=== PATIENT | female | born 1955 | race Caucasian/White ===

== ENCOUNTER 2022-12-15 08:45 | Observation (INO) | payer OTHER ==
--- OUTSIDE RECORDS SUMMARY | 2022-12-15 08:52 | XMS REPORT | Continuity of Care Document ---
:1955 Author Organization [facility] t Address [address] [facility] [address] [place] [id number] Care Team Providers Name Role Phone PCP, PATIENT DOES NOT HAVE A Primary Care Physician Unavaila ble Only, Ang Db Test Attending Clinician Unavailable Mery DAMON, Nenita Duenas Attending Clinician NENITA FELIZ Attending Clinician Unavailable Doctor Unassigned, [place] Attending Clinician Unavailable Shamir DAMON, Roya Hodges Attending Clinician [phone] Payers Payer Name Policy Type Policy Number Effective Date Expiration Date S ource Problems Condition Condition Condition Status Onset Resolution Last Treating Co mments Source Name Details Category Date Date Treatment Clinician Date No known No known Disease Kelse y active active Seybold problems problems Allergies, Adverse Reactions, Alerts Allergy Allergy Status Severity Reaction(s) Onset Inactive Treating Comm ents Source Name Type Date Date Clinician NO KNOWN Drug Active Univers ALLERGIE Class ity of [facility] Social History Social Habit Start Date Stop Date Quantity Comments Source Exposure to Yes [facility] SARS-CoV-2 (event) Medica l Branch Sex Assigned At [birth year] [facility] 00:00:00 00:00:00 [facility] Smoking Status Start Date Stop Date Source Unknown if ever smoked [facility] Never smoked tobacco Luciana Seyb old Medications Ordered Filled Start Stop Current Ordering Indication Dosage Frequency Signature Comments Components Source Medication Medication Date Date Medication? Clinician (SIG) Name Name No known 2020-07 No Univers medications 2-31 ity of 10:06: [address] Branch No known 2020-07 No Univers medications 2-31 ity of 10:06: [address] No known 2020-07 No Univers medications 2-31 ity of 10:06: [address] Levothyroxi 2020-07 Yes [id number] 100ug Take 1 Luciana ne Sodium 1-05 tablet Seybold (Synthroid) 00:00: (100 mcg 100 MCG 00 total) by oral Tablet mouth daily Azithromyci 2020-07- No [id number] Take 2 Luciana n 250 MG 1-11 20- tablets by Seyb old oral Tablet 00:00: 05:59 mouth on 00 :00 day 1 then 1 tablet by mouth daily for 4 days thereafter . Synthroid 2020- No Luciana 100 MCG 4-05-17 Seybold oral Tablet 00:00: 00:00 00 :00 Sodium Yes USE TWICE Luciana Fluoride 3-28 DAILY FOR Seybol d 5000 PPM 00:00: TOOTHPASTE 1.1 % 00 , SPIT OUT dental EXCESS. DO Paste NOT RINSE , EAT OR DRINK FOR 30 MINUTES Lorazepam 1 Yes 1mg Q.5D Take 1 mg K elsey MG oral 3-08 by mouth 2 Seybol d Tablet 00:00: times 00 daily as needed Immunizations Ordered Filled Immunization Date Status Comments [facility] e Immunization Name Name Covid-19 Vaccine 2020-09-09 Completed Luciana antonio (Moderna), 00:00:00 Mrna-lnp, Derian Protein, Pf, 100 Mcg/0.5ml,IM Covid-19 Vaccine 2020-09-05 Completed Luciana antonio (Moderna), 00:00:00 Mrna-lnp, Derian Protein, Pf, 100 Mcg/0.5ml,IM SARS-COV-2 COVID-19 2020-09-05 Completed Unive rsity of MODERNA VACCINE 00:00:00 [facility] SARS-COV-2 COVID-19 2020-09-05 Completed Unive rsity of MODERNA VACCINE 00:00:00 [facility] SARS-COV-2 COVID-19 2020-09-05 Completed Unive rsity of MODERNA VACCINE 00:00:00 [facility] SARS-COV-2 COVID-19 2020-09-05 Completed Unive rsity of MODERNA VACCINE 00:00:00 [facility] Covid-19 Vaccine 2020-08-09 Completed Luciana antonio (Moderna), 00:00:00 Mrna-lnp, Derian Protein, Pf, 100 Mcg/0.5ml,IM Covid-19 Vaccine 2020-08-08 Completed Luciana paniaguabold (Moderna), 00:00:00 Mrna-lnp, Derian Protein, Pf, 100 Mcg/0.5ml,IM SARS-COV-2 COVID-19 2020-08-08 Completed Unive rsity of MODERNA VACCINE 00:00:00 [facility] SARS-COV-2 COVID-19 2020-08-08 Completed Unive rsity of MODERNA VACCINE 00:00:00 [facility] SARS-COV-2 COVID-19 2020-08-08 Completed Unive rsity of MODERNA VACCINE 00:00:00 [facility] SARS-COV-2 COVID-19 2020-08-08 Completed Unive rsity of MODERNA VACCINE 00:00:00 [facility] Vital Signs Vital Name Observation Time Observation Value Comments Source Systolic blood pressure 2021-05-17 18:39:00 118 mm[Hg] Luciana Anold Diastolic blood 2021-05-17 18:39:00 70 mm[Hg] Raciel betts Seybmariana pressure Heart rate 2021-05-17 18:39:00 74 /min Luciaan antonio Body temperature 2021-05-17 18:39:00 36.39 Delmi Zoya Walter Respiratory rate 2021-05-17 18:39:00 12 /min Zoya Walter Body height 2021-05-17 18:39:00 154.9 cm Lucianaosmin antonio Body weight 2021-05-17 18:39:00 63.504 kg Luciana antonio BMI 2021-05-17 18:39:00 26.45 kg/m2 Lucianaosmin paniaguaesteban Procedures Procedure Date / Time Performed Performing Clinician [facility] e ASSIGNMENT OF BENEFITS 2021-07-12 15:52:48 Doctor Unassigned, No [facility] Encounters Start End Encounter Admission Attending Care Care Encounter Source Date/Time Date/Time Type Type Clinicians Facility Department ID 2021-07-12 2021-07-12 Laboratory Only, Ang Db Test [facility] 1.2.8 [id number] Univers 09:45:00 10:05:32 Only Nenita Feliz [facility] [id number] .10 ity of [place] [id number] Yannick as DENZEL?BLEA [id number] [address] MEDICAL OFFICE BUILDING 2021-07-12 2021-07-12 Outpatient R MERY [facility] [id number] Univers 09:45:00 10:05:32 NENITA ity of [facility] 2021-07-12 2021-07-12 Letter Doctor GIOVANA [id number] Univers 00:00:00 00:00:00 (Out) Unassigned, ROD [id number] ity of [place] [facility] [id number] Yannick as [id number] [facility] [address] [place] 2021-07-12 2021-07-12 Letter Doctor GIOVANA [id number] Univers 00:00:00 00:00:00 (Out) Unassigned, ROD [id number] ity of [place] [facility] [id number] Yannick as [phone] [facility] [address] [place] 2021-07-12 2021-07-12 Orders Doctor GIOVANA [id number] Univers 00:00:00 00:00:00 Only Unassigned, ROD [id number] ity of [place] [facility] [id number] Yannick as [id number] [facility] [address] [place] 2021-07-11 2021-07-11 Outpatient R [facility] [id number] Univers 15:45:00 15:45:00 ity of [facility] 2021-05-17 2021-05-17 Office Lawrence [place] [id number] Luciana 13:36:23 14:06:23 Visit Roya Boris [id number] Se joaquin Hodges [id number] [id number] Results This patient has no known results.
--- NOTE | 2022-12-15 09:25 | ER ---
Nurse's Notes [facility] Name: Joanne Leary Age: 67 yrs Sex: Female : 1955 Arrival Date: 12/15/2022 Time: 08:45 Bed 14 Private MD: Todd Murillo T Diagnosis: Chest pain, unspecified;Pain in right arm;Pain in right upper arm;Spondylolysis, cervical tweawa-[id number] STENOSIS;Hypokalemia Presentation: 12/15 08:55 Chief complaint: Patient states: she woke up morning with right am pain. she ap3 visited urgent care who informed her it could be a tendonitis. however this morning she woke up with the pain radiating into the right side of her chest and down into her right hand. Coronavirus screen: At this time, the client does not indicate any symptoms associated with coronavirus-19. Ebola Screen: No symptoms or risks identified at this time. Initial Sepsis Screen: Does the patient meet any 2 criteria? No. Patient's initial sepsis screen is negative. Does the patient have a suspected source of infection? No. Patient's initial sepsis screen is negative. Risk Assessment: Do you want to hurt yourself or someone else? Patient reports no desire to harm self or others. Onset of symptoms was December 11, 2022. 08:55 Method Of Arrival: Ambulatory ap3 08:55 Acuity: OLIMPIA 3 ap3 Triage Assessment: 08:57 General: Appears in no apparent distress. Behavior is calm, cooperative, appropriate ap3 for age. Pain: Complains of pain in right arm Pain radiates to chest and right hand Pain currently is 10 out of 10 on a pain scale. Pain began 2-3 days ago. Neuro: Level of Consciousness is awake, alert, obeys commands, Oriented to person, place, time, situation. Cardiovascular: Patient's skin is warm and dry. Respiratory: Airway is patent Respiratory effort is even, unlabored, Respiratory pattern is regular, symmetrical. Historical: - Allergies: 08:57 No Known Allergies; ap3 - Home Meds: 08:57 Synthroid Oral [Active]; ap3 - PMHx: 08:57 None; ap3 - Immunization history:: Client reports receiving the 2nd dose of the Covid vaccine. - Social history:: Smoking status: Patient denies any tobacco usage or history of. Screenin:58 [facility] ED Fall Risk Assessment (Adult) History of falling in the last 3 months, ap3 including since admission No falls in past 3 months (0 pts). Abuse screen: Denies threats or abuse. Nutritional screening: No deficits noted. Tuberculosis screening: No symptoms or risk factors identified. Assessment: 11:46 Reassessment: attempted report to 4th floor. was informed nurse would return my call. ap3 12:20 Reassessment: nurse attempted to call report again. was informed the nurse would return ap3 my call. 12:49 Reassessment: report called to receiving nurse. ap3 Vital Signs: 08:55 Resp 17; Temp 97.6(TE); Weight 61.23 kg; Height 5 ft. 1 in. ; Pain 10/10; ap3 09:09 BP 141 / 75; Pulse 59; Pulse Ox 99% on R/A; ap3 11:46 BP 134 / 74; Pulse 56; Pulse Ox 99% ; ap3 08:55 Body Mass Index 25.51 (61.23 kg, 154.94 cm) ap3 08:55 Pain Scale: Adult ap3 ED Course: 08:47 Patient arrived in ED. mr 08:47 Todd Murillo MD is Private Physician. mr 08:50 Christiano Kwon MD is Attending Physician. carmelo 08:51 Sonia Andino, RN is Primary Nurse. ap3 08:57 Triage completed. ap3 08:58 Arm band placed on left wrist. ap3 08:58 Patient has correct armband on for positive identification. Bed in low position. Call ap3 light in reach. Side rails up X2. shirt cleaner on. Pulse ox on. NIBP on. Door closed. Noise minimized. 08:58 Patient maintains SpO2 saturation greater than 95% on room air. ap3 09:00 EKG done, by ED staff, reviewed by Christiano Kwon MD. em1 09:23 Gilberto Escalera MD is Hospitalizing Provider. carmelo 09:31 CT C Spine In Process Unspecified. EDMS 09:39 Sánchez Ruiz is Hospitalizing Provider. carmelo 09:40 CT Aorta for Dissection In Process Unspecified. EDMS 09:45 XRAY Chest (1 view) In Process Unspecified. EDMS 09:55 UPPER EXTREMITY VENOUS UNILATE In Process Unspecified. EDMS 12:26 Admitting physician to see patient. ap3 12:50 No provider procedures requiring assistance completed. Patient admitted, IV remains in ap3 place. Administered Medications: 10:53 Drug: Aspirin PO Chewable Tablet 324 mg Route: PO; ap3 12:21 Follow up: Response: No adverse reaction ap3 10:53 Drug: Famotidine IVP 20 mg Route: IVP; Site: right antecubital; ap3 12:21 Follow up: Response: No adverse reaction ap3 10:53 Drug: Potassium PO Effervescent Tablet 25 mEq Route: PO; ap3 12:21 Follow up: Response: No adverse reaction ap3 10:53 Drug: Decadron - Dexamethasone IVP 10 mg Route: IVP; Site: right antecubital; ap3 12:21 Follow up: Response: No adverse reaction ap3 10:53 Drug: Ketorolac IVP 30 mg Route: IVP; Site: right antecubital; ap3 12:21 Follow up: Response: No adverse reaction ap3 Medication: 12:50 VIS not applicable for this client. ap3 Outcome: 09:24 Decision to Hospitalize by Provider. carmelo 12:50 Admitted to Tele ap3 12:50 Condition: good 12:50 Instructed on the need for admit. 12:58 Patient left the ED. mb9 Signatures: Dispatcher [employer] Christiano Priest MD MD cha Rivera, Cristian Mohan1 Sonia Andino RN RN ap3 Franchesca Malhotra RN RN mb9
--- NOTE | 2022-12-15 09:25 | EDPHYS ---
Physician Documentation [facility] Name: Joanne Leary Age: 67 yrs Sex: Female : 1955 Arrival Date: 12/15/2022 Time: 08:45 Bed 14 Private MD: Todd Murillo T ED Physician Christiano Kwon HPI: 12/15 09:18 This 67 yrs old Female presents to ER via Ambulatory with complaints of Chest carmelo Pain. Historical: - Allergies: 08:57 No Known Allergies; ap3 - Home Meds: 08:57 Synthroid Oral [Active]; ap3 - PMHx: 08:57 None; ap3 - Immunization history:: Client reports receiving the 2nd dose of the Covid vaccine. - Social history:: Smoking status: Patient denies any tobacco usage or history of. ROS: 09:19 Constitutional: Negative for fever, chills, and weight loss, Eyes: Negative for injury, carmelo pain, redness, and discharge, ENT: Negative for injury, pain, and discharge, Neck: Negative for injury, pain, and swelling, Respiratory: Negative for shortness of breath, cough, wheezing, and pleuritic chest pain, Abdomen/GI: Negative for abdominal pain, nausea, vomiting, diarrhea, and constipation, Back: Negative for injury and pain, : Negative for injury, bleeding, discharge, and swelling, Skin: Negative for injury, rash, and discoloration, Neuro: Negative for headache, weakness, numbness, tingling, and seizure, Psych: Negative for depression, anxiety, suicide ideation, homicidal ideation, and hallucinations, Allergy/Immunology: Negative for hives, rash, and allergies, Endocrine: Negative for neck swelling, polydipsia, polyuria, polyphagia, and marked weight changes, Hematologic/Lymphatic: Negative for swollen nodes, abnormal bleeding, and unusual bruising. 09:19 Cardiovascular: Positive for chest pain. 09:19 MS/extremity: Positive for pain, of the right arm. Exam: 09:19 Constitutional: This is a well developed, well nourished patient who is awake, alert, carmelo and in no acute distress. Head/Face: Normocephalic, atraumatic. Eyes: Pupils equal round and reactive to light, extra-ocular motions intact. Lids and lashes normal. Conjunctiva and sclera are non-icteric and not injected. Cornea within normal limits. Periorbital areas with no swelling, redness, or edema. ENT: Nares patent. No nasal discharge, no septal abnormalities noted. Tympanic membranes are normal and external auditory canals are clear. Oropharynx with no redness, swelling, or masses, exudates, or evidence of obstruction, uvula midline. Mucous membranes moist. Neck: Trachea midline, no thyromegaly or masses palpated, and no cervical lymphadenopathy. Supple, full range of motion without nuchal rigidity, or vertebral point tenderness. No Meningismus. Chest/axilla: Normal chest wall appearance and motion. Nontender with no deformity. No lesions are appreciated. Cardiovascular: Regular rate and rhythm with a normal S1 and S2. No gallops, murmurs, or rubs. Normal PMI, no JVD. No pulse deficits. Respiratory: Lungs have equal breath sounds bilaterally, clear to auscultation and percussion. No rales, rhonchi or wheezes noted. No increased work of breathing, no retractions or nasal flaring. Abdomen/GI: Soft, non-tender, with normal bowel sounds. No distension or tympany. No guarding or rebound. No evidence of tenderness throughout. Back: No spinal tenderness. No costovertebral tenderness. Full range of motion. Female : Normal external genitalia. Skin: Warm, dry with normal turgor. Normal color with no rashes, no lesions, and no evidence of cellulitis. Neuro: Awake and alert, GCS 15, oriented to person, place, time, and situation. Cranial nerves II-XII grossly intact. Motor strength 5/5 in all extremities. Sensory grossly intact. Cerebellar exam normal. Normal gait. Psych: Awake, alert, with orientation to person, place and time. Behavior, mood, and affect are within normal limits. 09:19 Musculoskeletal/extremity: Extremities: grossly normal except: noted in the right arm: pain, ROM: full active range of motion, full passive range of motion, Circulation is intact in all extremities. Sensation intact. Compartment Syndrome exam of affected extremity: is normal. DVT Exam: no swelling, negative Homans' sign noted on exam, no appreciated bluish discoloration, no erythema, no increased warmth, pain, tenderness. 09:26 ECG was reviewed by the Attending Physician. [facility] Vital Signs: 08:55 Resp 17; Temp 97.6(TE); Weight 61.23 kg; Height 5 ft. 1 in. ; Pain 10/10; ap3 09:09 BP 141 / 75; Pulse 59; Pulse Ox 99% on R/A; ap3 11:46 BP 134 / 74; Pulse 56; Pulse Ox 99% ; ap3 08:55 Body Mass Index 25.51 (61.23 kg, 154.94 cm) ap3 08:55 Pain Scale: Adult ap3 MDM: 08:50 Patient medically screened. carmelo 09:24 HEART Score: History: Slightly Suspicious (0), ECG: Normal (0), Age: > or = 65 years carmelo (2), Risk Factors: 1 or 2 risk factors (1), [Hypertension] [+ Family HX] Troponin: < or = 1 x Normal Limit (0). The patient was given aspirin in the Emergency Department. MAYNOR Risk Score: 1 - patient's age is greater or equal to 65 years, TOTAL SCORE = 1. Data reviewed: vital signs, nurses notes, lab test result(s), EKG, radiologic studies, CT scan, doppler, plain films. Consideration of Admission/Observation Escalation of care including admission/observation considered. I considered the following discharge prescriptions or medication management in the emergency department Medications were administered in the Emergency Department. See MAR. Test considered but Not performed: MRI: no cervical mri. 12/15 08:51 Order name: Basic Metabolic Panel; Complete Time: 10:17 12/15 08:51 Order name: CBC with Diff; Complete Time: 10:17 12/15 08:51 Order name: LFT's; Complete Time: 10:17 12/15 08:51 Order name: Magnesium; Complete Time: 10:17 12/15 08:51 Order name: NT PRO-BNP; Complete Time: 10:17 12/15 08:51 Order name: PT-INR; Complete Time: 10:17 12/15 08:51 Order name: Troponin HS; Complete Time: 10:17 12/15 08:51 Order name: Lipase; Complete Time: 10:17 12/15 10:35 Order name: Magnesium EDMS 12/15 10:35 Order name: Phosphorus EDMS 12/15 10:35 Order name: T4 Free EDMS 12/15 10:35 Order name: Thyroid Stimulating Hormone EDMS 12/15 10:35 Order name: Urinalysis w/ reflexes EDMS 12/15 10:35 Order name: Basic Metabolic Panel EDMS 12/15 10:35 Order name: Basic Metabolic Panel EDMS 12/15 10:35 Order name: CBC with Automated Diff EDMS 12/15 10:35 Order name: CBC with Automated Diff EDMS 12/15 10:35 Order name: Lipid Profile EDMS 12/15 10:35 Order name: Lipid Profile EDMS 12/15 10:39 Order name: CREATININE WHOLE BLOOD; Complete Time: 11:11 EDMS 12/15 08:51 Order name: XRAY Chest (1 view); Complete Time: 10:17 [facility] 12/15 09:19 Order name: CT C Spine; Complete Time: 10:17 [facility] 12/15 09:24 Order name: UPPER EXTREMITY VENOUS UNILATE; Complete Time: 12:20 EDMS 12/15 09:27 Order name: CT Aorta for Dissection; Complete Time: 10:17 [facility] 12/15 10:22 Order name: C Spine Wo Cont; Complete Time: 12:20 [facility] 12/15 10:38 Order name: Echo with Doppler EDMS 12/15 08:51 Order name: EKG; Complete Time: 08:52 [facility] 12/15 10:35 Order name: CONS Physician Consult EDAZ 12/15 10:35 Order name: Heart Healthy EDAZ 12/15 08:51 Order name: Cardiac monitoring; Complete Time: 08:59 [facility] 12/15 08:51 Order name: EKG - Nurse/Tech; Complete Time: 09:00 [facility] 12/15 08:51 Order name: IV Saline Lock; Complete Time: 09:28 [facility] 12/15 08:51 Order name: Labs collected and sent; Complete Time: 09:28 [facility] 12/15 08:51 Order name: O2 Per Protocol; Complete Time: 08:59 [facility] 12/15 08:51 Order name: O2 Sat Monitoring; Complete Time: 08:59 [facility] EC:26 Rate is 61 beats/min. Rhythm is regular. QRS [place] is Normal. [place] interval is normal. QRS carmelo interval is normal. QT interval is normal. No Q waves. T waves are Normal. No ST changes noted. Clinical impression: NSR w/ Non-specific ST/T Changes and No evidence of ischemia. Interpreted by me. Reviewed by me. Administered Medications: 10:53 Drug: Aspirin PO Chewable Tablet 324 mg Route: PO; ap3 12:21 Follow up: Response: No adverse reaction ap3 10:53 Drug: Famotidine IVP 20 mg Route: IVP; Site: right antecubital; ap3 12:21 Follow up: Response: No adverse reaction ap3 10:53 Drug: Potassium PO Effervescent Tablet 25 mEq Route: PO; ap3 12:21 Follow up: Response: No adverse reaction ap3 10:53 Drug: Decadron - Dexamethasone IVP 10 mg Route: IVP; Site: right antecubital; ap3 12:21 Follow up: Response: No adverse reaction ap3 10:53 Drug: Ketorolac IVP 30 mg Route: IVP; Site: right antecubital; ap3 12:21 Follow up: Response: No adverse reaction ap3 Disposition Summary: 12/15/22 09:24 Hospitalization Ordered Hospitalization Status: Observation carmelo Location: Telemetry/MedSurg (observation) carmelo Condition: Fair carmelo Problem: new carmelo Symptoms: have improved carmelo Bed/Room Type: Standard carmelo Provider: Sánchez Ruiz(12/15/22 09:39) carmelo Room Assignment: 409(12/15/22 10:50) dw Diagnosis - Chest pain, unspecified carmelo - Pain in right arm carmelo - Pain in right upper arm carmelo - Spondylolysis, cervical region - C5-C6 STENOSIS carmelo - Hypokalemia carmelo Forms: - Medication Reconciliation Form carmelo - SBAR form carmelo Signatures: Dispatcher [employer] EDMirna Barrera RN RN dw Anderson, Corey, MD MD cha Prokisch, Amanda RN RN ap3 Corrections: (The following items were deleted from the chart) 09:22 09:20 Extremity Venous Uni [id number] ordered. EDMS EDMS 09:39 09:24 Gilberto Escalera cha [facility] 10:50 09:24 carmelo kenyetta
[2022-12-15 09:33] LABS: Absolute Lymphocytes (CBC) 1.7 K/uL (0.7-4.9); Hematocrit 34.4 % (36.0-45.0); Lymphocytes % 20.3 % (15.3-44.8); MCV 91.8 fL (80-100); MPV 8.5 fL (7.6-11.3); RBC Red Blood Cell Count 3.75 M/uL (3.86-4.86)
[2022-12-15] MEDS ORDERED: ASPIRIN 81 MG CHEWABLE TABLET ONE (09:35)
[2022-12-15] MEDS ORDERED: FAMOTIDINE 20 MG/2 ML VIAL IV ONE (09:35)
--- NOTE | 2022-12-15 09:44 | RAD REPORT ---
EXAM DESCRIPTION: CT - C Spine Wo Con - 12/15/2022 9:29 am CLINICAL HISTORY: Right arm numbness COMPARISON: None TECHNIQUE: Computed axial tomography of the cervical spine were obtained with sagittal and coronal r econstruction images generated and reviewed. All CT scans are performed using dose optimization technique as appropriate and may include automated exposure control or mA/KV adjustment according to patient size. FINDINGS: A cervical fracture is not seen. No dislocation. Slight posterior subluxation C4 on C5. C5-6 disc is thinned. Osteophytes are present. Small disc bulge. Mild to moderate narrowing of the ri ght neural foramina. IMPRESSION: A cervical fracture is not seen. Spondylosis C5-6 resulting in mild to moderate right foraminal stenosis. If the patient continues have symptoms to suggest spinal cord/spinal canal pathology then MRI would b e recommended.
[2022-12-15 09:51] LABS: Protime INR 1.14
[2022-12-15 09:53] LABS: Albumin 3.5 g/dL (3.4-5.0); Bilirubin Direct 0.1 mg/dL (0-0.2); Bilirubin Indirect, Calculated 0.3 mg/dL (0.2-0.8); Bilirubin Total 0.4 mg/dL (0.2-1.0); Magnesium 1.9 mg/dL (1.6-2.4); Potassium 3.4 mEq/L (3.5-5.1); Protein, Total 6.7 g/dL (6.4-8.2); Troponin High Sensitivity 5.4 pg/mL (<58.9)
--- NOTE | 2022-12-15 09:57 | RAD REPORT ---
EXAM DESCRIPTION: CT - Angio Aorta For Dissection - 12/15/2022 9:38 am CLINICAL HISTORY: . Chest and abd pain COMPARISON: None TECHNIQUE: Computed tomography angiography of the chest, abdomen pelvis were obtained. 100 cc Isovue 370 was administered intravenously. Coronal and sagittal reconstruction were performed. MIP 3D reconstruction was performed All CT scans are performed using dose optimization technique as appropriate and may include automated exposure control or mA/KV adjustment according to patient size. FINDINGS: An aortic dissection is not seen. An aortic aneurysm is not displayed. The celiac, SMA and KATIE are patent . A lung consolidation is not present. A pericardial effusion is not seen. A pleural effusion is not no arlin. The liver,spleen, pancreas,adrenals and kidneys demonstrate no significant abnormality. There no evidence diverticulitis. Normal appendix. No adnexal mass Marked osteoarthritis left hip IMPRESSION: Negative for an aortic dissection.
--- NOTE | 2022-12-15 10:11 | RAD REPORT ---
EXAM DESCRIPTION: Nita Single View12/15/2022 9:46 am CLINICAL HISTORY: Chest pain COMPARISON: none FINDINGS: The lungs appear clear of acute infiltrate. The heart is normal size IMPRESSION: No acute abnormalities displayed
[2022-12-15] MEDS ORDERED: HYDROCODONE/APAP 5/325 MG TAB PO PRN (10:28)
[2022-12-15] MEDS ORDERED: HYDRALAZINE HCL 20 MG/ML VIAL IV PRN (10:32)
[2022-12-15] MEDS ORDERED: POTASSIUM CL SA 10 MEQ TAB PO ONE (10:33)
--- NOTE | 2022-12-15 10:35 | P.HP ---
Certification for Inpatient Patient admitted to: Observation With expected LOS: <2 Midnights Patient will require the following post-hospital care: None Practitioner: I am a practitioner with admitting privileges, knowledge of patient current condition, hospital course, and medical plan of care. Services: Services provided to patient in accordance with Admission requirements found in Title 42 Section 412.3 of the Code of Federal Regulations Patient History Date of Service: 12/15/22 Reason for admission: Chest pain and RU Arm pain History of Present Illness: Patient is a 67-year-old female with a past medical history significant for hypothyroidism who presents with complaint of chest pain located in the right chest wall onset yesterday. Patient reported that 4 days ago she started having pain in the right upper arm. Patient followed up with an urgent care 2 days ago and was prescribed muscle relaxants and pain medication. Patient also reported that she was medicated with steroid. Patient reported that she continued having pain without any relief with prescribed medications. Patient rated right upper arm pain as 10/10 in severity and described pain as aching quality. Patient also rated chest pain as 5/10 in severity and described pain as pressure in quality. Patient reported associated signs and symptoms of dizziness. Patient denies any other signs and symptoms. Symptoms are aggravated or relieved by nothing. Patient decided to present to the hospital due to worsening symptoms. Allergies No Known Allergies Allergy (Verified 12/15/22 13:06) Home Medications: Levothyroxine Sodium [Synthroid] 0.1 mg PO 12/15/22 - Past Medical/Surgical History -: Hypothyroidism. Past Surgical History: Reviewed- Non-Contributory - Family History Family History: Reviewed- Non-Contributory - Social History Smoking Status: Never smoker Alcohol use: Yes CD- Drugs: No Caffeine use: Yes Place of Residence: Home Review of Systems General: Unremarkable Eyes: Unremarkable ENT: Unremarkable Respiratory: Unremarkable Cardiovascular: Chest Pain Gastrointestinal: Unremarkable Genitourinary: Unremarkable Musculoskeletal: Arm Pain Integumentary: Unremarkable Neurological: Other (Dizziness) Lymphatics: Unremarkable Physical Examination - Physical Exam General: Alert, In no apparent distress, Oriented x3 HEENT: Atraumatic, PERRLA, Mucous membr. moist/pink, EOMI, Sclerae nonicteric Neck: Supple, 2+ carotid pulse no bruit, No LAD, Without JVD or thyroid abnormality Respiratory: Clear to auscultation bilaterally, Normal air movement Cardiovascular: No edema, Regular rate/rhythm, Normal S1 S2 Capillary refill: <2 Seconds Gastrointestinal: Normal bowel sounds, No tenderness Musculoskeletal: No clubbing, No swelling, Tenderness Integumentary: No rashes, No breakdown, No significant lesion Neurological: Normal gait, Normal speech, Normal strength at 5/5 x4 extr, Normal tone, Normal affect Lymphatics: No axilla or inguinal lymphadenopathy - Studies Laboratory Data (last 24 hrs) 12/15/22 09:21: PT 12.5, INR 1.14 12/15/22 09:21: WBC 8.50, Hgb 11.6 L, Hct 34.4 L, Plt Count 260 12/15/22 09:21: Sodium 141, Potassium 3.4 L, BUN 33 H, Creatinine 0.89, Glucose 111 H, Magnesium 1.9, Total Bilirubin 0.4, AST 18, ALT 27, Alkaline Phosphatase 64, Lipase 29 Assessment and Plan - Plan --Chest pain. Likely atypical. Serial troponins negative so far. Echocardiogram pending to assess cardiac structures and functions. Cardiology consulted. Telemetry to monitor for any significant. Will await further recommendation from access database developer. Arrhythmia. --Right upper arm pain. Doppler ultrasound negative for DVT in the right upper arm. Cervical spine MRI indicates Small to moderate right posterolateral disc herniation C6-7. Orthopedic spine doctor consulted. Patient placed on steroids and muscle relaxants. We will await further recommendations from ortho pedic spine MD. --Acute pain. We will manage pain with current pain medication regimen. --Hypothyroidism. Continue Synthroid. --Hypokalemia. Replete as needed. --CKD 2. Stable. We will continue to monitor renal functions. --Anemia of chronic disease. H&H stable. We will continue to monitor hemoglobin and transfuse if less than 7.0. --DVT prophylaxis with Lovenox subQ. Discharge Plan: Home Plan to discharge in: 48 Hours - Advance Directives Does patient have a Living Will: No Does patient have a Durable POA for Healthcare: No - Code Status/Comfort Care Code Status Assessed: Yes Physician Review: Patient Assessed, Agree with Above Assessment and Plan Critical Care: No
[2022-12-15] MEDS ORDERED: dexAMETHasone 10 MG/ML VIAL ONE (10:52)
[2022-12-15] MEDS ORDERED: POTASSIUM 25 MEQ EFFERV TAB ONE (10:52)
[2022-12-15] MEDS ORDERED: KETOROLAC 30 MG/ML INJ ONE (10:52)
--- NOTE | 2022-12-15 11:08 | RAD REPORT ---
EXAM DESCRIPTION: US - UPPER EXTREMITY VENOUS UNILATE - 12/15/2022 10:02 am CLINICAL HISTORY: Right upper extremity pain COMPARISON: None. FINDINGS: The right internal jugular, subclavian, brachial, axillary, cephalic, basilic, radial and ulnar veins demonstrate phasic signal. The veins are generally compressible. Doppler demonstrates good flow Grayscale, color and spectral analysis performed on all vessels IMPRESSION: No evidence of thrombus involving the right upper extremity
--- NOTE | 2022-12-15 11:47 | RAD REPORT ---
EXAM DESCRIPTION: MRI - C Spine Wo Cont - 12/15/2022 11:22 am CLINICAL HISTORY: Right arm radiculopathy COMPARISON: CT December 15, 2022 TECHNIQUE: Magnetic resonance imaging of the cervical spine was obtained. Sagittal and axial images completed. FINDINGS: No significant abnormality craniocervical junction C2-3 unremarkable. Minimal spondylosis C3-4 Slight posterior subluxation C4 on C5. Disc bulge and osteophytes C4-5. Minimal narrowing of thecal s ac. Neural foramina patent C5-6 disc is thinned. Mild spondylosis. [id number] narrowing right neural foramina Small to moderate right posterolateral disc osteophyte complex C6-7 C7-T1 unremarkable The spinal cord is normal caliber and signal. No significant abnormal signal within the bones is noted. IMPRESSION: Small to moderate right posterolateral disc herniation C6-7
[2022-12-15 13:22] VITALS: BMI 25.4
[2022-12-15] MEDS: HYDROMORPHONE HCL 1 MG/ML INJ IV PRN ×2 (14:02→16:47)
[2022-12-15 16:27] LABS: Urine Bacteria None Seen /HPF (<20); Urine Bilirubin NEGATIVE (Negative); Urine Blood Negative (Negative); Urine Clarity Clear (Clear); Urine Color Colorless (Yellow); Urine Glucose NEGATIVE (Negative); Urine Protein NEGATIVE (Negative); Urine RBC <5 /HPF (None Seen); Urine Urobilinogen Normal (Normal); Urine pH 7.5 (5.0-7.0)
[2022-12-15 16:38] LABS: Phosphorus 2.9 mg/dL (2.5-4.9); Thyroid Stimulating Hormone 0.481 uIU/mL (0.358-3.740)
[2022-12-15] MEDS: METHYLPREDNISOLONE 40 MG INJ IV SCH (16:42)
[2022-12-15] MEDS: ONDANSETRON 4 MG/2 ML VIAL IV PRN ×2 (16:47→22:20)
[2022-12-15] MEDS: CYCLOBENZAPRINE 10 MG TAB PO PRN (20:22)
[2022-12-15] MEDS: ACETAMINOPHEN 325 MG TABLET PO PRN (21:43)
[2022-12-16] MEDS: METHYLPREDNISOLONE 40 MG INJ IV SCH ×2 (02:01→08:16)
[2022-12-16 03:12] LABS: Hematocrit 37.2 % (36.0-45.0); Lymphocytes % 7.6 % (15.3-44.8); MCV 90.9 fL (80-100); MPV 8.7 fL (7.6-11.3); RBC Red Blood Cell Count 4.09 M/uL (3.86-4.86)
[2022-12-16 03:26] LABS: Potassium 4.5 mEq/L (3.5-5.1)
[2022-12-16 04:12] LABS: Blood Morphology Comment NOT SEEN (NOT SEEN); Platelet Estimate ADEQ
[2022-12-16] MEDS: ACETAMINOPHEN 325 MG TABLET PO PRN (04:40)
[2022-12-16] MEDS ORDERED: LEVOTHYROXINE SOD 0.1 MG TAB PO SCH (06:30)
--- NOTE | 2022-12-16 07:18 | P.PN ---
Date of Service: 12/16/22 Subjective: Feeling slightly better today pain slightly decreased in arm (9/10 pain scale), some relief when lifting arm up no chest pain noted otherwise no new / worsening problems ROS: 10 point ROS as noted above, otherwise negative Physical Exam: GEN: Alert, oriented, NAD HEENT: Normal conjunctiva, sclera anicteric CV: Regular rate and rhythm, no edema Pulm: Nonlabored respirations on room air ABD: Soft, nontender, nondistended MSK: No joint tenderness Neuro: Normal speech, normal affect vitals reviewed Problem List: Chest pain Likely atypical. troponins negative x4. monitor on telemetry Echocardiogram pending Cardiology consulted Stress test (12/16) No evidence of stress induced myocardial ischemia Right upper arm pain Doppler ultrasound negative for DVT in the right upper arm. Cervical spine MRI (12/15): Small to moderate right posterolateral disc herniation C6-7. Orthopedic spine doctor consulted. Patient placed on steroids and muscle relaxants. continue current pain medication regimen. Hypothyroidism Continue Synthroid. Hypokalemia Replete as needed. CKD 2 Stable. continue to monitor renal function Anemia of chronic disease H&H stable. continue to monitor hemoglobin and transfuse if less than 7.0. VTE: Lovenox Code: Full Dispo: ~1-2 days
[2022-12-16] MEDS ORDERED: REGADENOSON 0.4 MG/5 ML SYR IV ONE (07:19)
[2022-12-16] MEDS ORDERED: ASPIRIN 81 MG CHEWABLE TABLET PO SCH (09:00)
[2022-12-16] MEDS ORDERED: ENOXAPARIN 40 MG/0.4 ML SQ SCH (09:00)
[2022-12-16 09:36] VITALS: O2SAT 96
[2022-12-16] MEDS: CYCLOBENZAPRINE 10 MG TAB PO PRN (09:49)
--- NOTE | 2022-12-16 09:51 | RAD REPORT ---
EXAM DESCRIPTION: NM - Rest Stress Cardiac Imaging - 12/16/2022 9:41 am CLINICAL HISTORY: CP COMPARISON: No comparisons TECHNIQUE: The patient was administered approximately 10.2 mCi of Tc 99m Sestamibi prior to resting SPECT imaging of the heart. The patient was then administered approximately 31.3 mCi of Tc 99m Sestam ibi following exercise or pharmacologic stress. Multiplanar SPECT images were reviewed. FINDINGS: No stress induced ischemic defect is seen to suggest stress induced ischemia. No fixed def ect is seen to suggest hibernating myocardium or scarred myocardium. Apparent small fixed defect allison ng the inferior wall is probably related to splanchnic uptake and diaphragmatic attenuation. The end diastolic volume is 68 ml, the end systolic volume is 17 ml, and the ejection fraction is 75 %. IMPRESSION: No evidence of stress induced myocardial ischemia. Decreased end systolic volume, which may relate to hypertensive state.
[2022-12-16] MEDS ORDERED: CODEINE 30MG/APAP 300MG TAB PO PRN (11:01)
--- NOTE | 2022-12-16 11:24 | P.DS ---
Admission Date: 12/15/22 Discharge Date: 12/16/22 Disposition: ROUTINE DISCHARGE Discharge Condition: FAIR Reason for Admission: Chest pain and RU Arm pain Consultations: Orthopedic Surgeon - Dr. Leonard Cardiology - Dr. Medina Brief History of Present Illness: 67yo F, PMH: hypothyroidism Patient who presents with complaint of chest pain located in the right chest wall onset yesterday. Patient reported that 4 days ago she started having pain in the right upper arm. Patient followed up with an urgent care 2 days ago and was prescribed muscle relaxants and pain medication. Patient also reported that she was medicated with steroid. Patient reported that she continued having pain without any relief with prescribed medications. Patient rated right upper arm pain as 10/10 in severity and described pain as aching quality. Patient also rated chest pain as 5/10 in severity and described pain as pressure in quality. Patient reported associated signs and symptoms of dizziness. Patient denies any other signs and symptoms. Symptoms are aggravated or relieved by nothing. Patient decided to present to the hospital due to worsening symptoms. Hospital Course: Problem List: Chest pain Right upper arm pain Hypothyroidism Hypokalemia CKD 2 Anemia of chronic disease Patient presented with chest pain and right upper arm pain. Troponins were negative x4. Cervical CT showed "Spondylosis C5-6 resulting in mild to moderate right foraminal stenosis." Cervical spine MRI indicated "Small to moderate right posterolateral disc herniation C6-7." Cardiology was consulted. Stress test was performed and showed No evidence of stress induced myocardial ischemia. Orthopedic-spine (Dr. Leonard) was consulted. [place] this may be a contusion, possibly related to foraminal stenosis. Recommended follow up in office for injection. In the hospital she was treated with steroids, muscle relaxer, and pain medication. She had mild relief of her symptoms. New prescriptions Flexeril Tylenol #3 Follow up: PCP 3-5 days Orthopedic Spine - Dr. Leonard on Thursday as discussed Cardiology within a few weeks May benefit from nerve conduction studies / EMG Physical Exam: GEN: Alert, oriented, NAD HEENT: Normal conjunctiva, sclera anicteric CV: Regular rate and rhythm, no edema Pulm: Nonlabored respirations on room air ABD: Soft, nontender, nondistended MSK: No joint tenderness Neuro: Normal speech, normal affect Vital Signs/Physical Exam: Temp Pulse Resp BP Pulse Ox 97.1 F 64 19 149/69 H 97 06/06/23 08:00 12/16/22 08:00 12/16/22 08:00 12/16/22 08:00 12/16/22 08:00 Laboratory Data at Discharge: WBC 12.80 thou/uL (4.3-10.9) H 12/16/22 02:51 Hgb 12.5 g/dL (12.0-15.0) 12/16/22 02:51 Hct 37.2 % (36.0-45.0) 12/16/22 02:51 Plt Count 299 thou/uL (152-406) 12/16/22 02:51 PT 12.5 SECONDS (9.5-12.5) 12/15/22 09:21 INR 1.14 12/15/22 09:21 Sodium 140 mEq/L (136-145) 12/16/22 02:51 Potassium 4.5 mEq/L (3.5-5.1) D 12/16/22 02:51 BUN 29 mg/dL (7-18) H 12/16/22 02:51 Creatinine 0.83 mg/dL (0.55-1.02) 12/16/22 02:51 Glucose 121 mg/dL (74-106) H 12/16/22 02:51 Phosphorus 2.9 mg/dL (2.5-4.9) 12/15/22 15:56 Magnesium 2.0 mg/dL (1.6-2.4) 12/15/22 15:56 Total Bilirubin 0.4 mg/dL (0.2-1.0) 12/15/22 09:21 AST 18 U/L (15-37) 12/15/22 09:21 ALT 27 U/L (13-56) 12/15/22 09:21 Alkaline Phosphatase 64 U/L (45-117) 12/15/22 09:21 Triglycerides 73 mg/dL (<150) 12/16/22 02:51 Cholesterol 225 mg/dL (<200) H 12/16/22 02:51 HDL Cholesterol 71 mg/dL (40-60) H 12/16/22 02:51 Cholesterol/HDL Ratio 3.17 12/16/22 02:51 Lipase 29 U/L (13-75) 12/15/22 09:21 Home Medications: Levothyroxine Sodium [Synthroid] 0.1 mg PO 12/15/22 Physician Discharge Instructions: Patient presented with chest pain and right upper arm pain. Troponins were negative x4. Cervical CT showed "Spondylosis C5-6 resulting in mild to moderate right foraminal stenosis." Cervical spine MRI indicated "Small to moderate right posterolateral disc herniation C6-7." Cardiology was consulted. Stress test was performed and showed No evidence of stress induced myocardial ischemia. Orthopedic-spine (Dr. Leonard) was consulted. [place] this may be a contusion, possibly related to foraminal stenosis. Recommended follow up in office for injection. In the hospital she was treated with steroids, muscle relaxer, and pain medication. She had mild relief of her symptoms. New prescriptions Flexeril Tylenol #3 Follow up: PCP 3-5 days Orthopedic Spine - Dr. Leonard on Thursday as discussed Cardiology within a few weeks May benefit from nerve conduction studies / EMG Followup: Todd Murillo MD [Primary Care Provider] - Time spent managing pt's care (in minutes): 45
[2022-12-16 12:38] VITALS: BP 140/72; TEMP 97.8
--- NOTE | 2022-12-17 07:19 | TREADPHA ---
DX: CHEST PAIN Date of Study: 12/16/2022 Ht: 5' 1 " Wt: 135 lb 0 oz Consulting Physician: SHIVAM MEDICATIONS: TYLENOL, ASPIRIN, FLEXERIL, LOVENOX, APRESOLINE, DILAUDID, SYNTHROID, SOLU-MEDROL, ZOFRAN HISTORY: 67 YEAR OLD FEMALE WITH COMPLIANTS OF CHEST PAIN. HISTORY OF HYPOTHYROIDISM. DENIES SMOKING, DRINKING OR DRUG USE. NO PREVIOUS HEART SURGERIES. PHYSICIAL EXAMINATION: RESTING B.P.: 132/67 RESTING H.R.: 72 RESTING EKG: NORMAL PROTOCOL: PHARMACOLOGIC EXERCISE TIME: 3:30 B.P. AT PEAK STRESS: 134/75 IMPRESSION: LEXISCAN INJECTED. CARDIOLITE GIVEN PER PROTOCOL. SEE NUCLEAR MEDICINE REPORT. COMPLAINTS OF PAIN IN RIGHT ARM PRIOR TO PROCEDURE. NO CHANGE IN PAIN THROUGHOUT. DENIES CHEST PAIN OR SHORTNESS OF BREATH. OCCASIONAL PREMATURE VENTRICULAR COMPLEXES NOTED IN RECOVERY. NO SUPRAVENTRICULAR TACHYCARDIA, VENTRICULAR TACHYCARDIA, OR PREMATURE ATRIAL COMPLEXES NOTED.
--- NOTE | 2022-12-17 07:23 | EKG ---
Test Date: 2022-12-15 Test Time: 08:56:21 Rn Renal: FREDO MEASUREMENT RESULTS: Intervals: Rate: 61 MS: 160 QRSD: 80 QT: 412 QTc: 414 [place]: P: 70 MS: 160 QRS: 50 T: 60 INTERPRETIVE STATEMENTS: Normal sinus rhythm Normal ECG No previous ECG available for comparison Electronically Signed On 12-17-22 07:15:28 CDT by Eleno Medina
--- NOTE | 2022-12-17 12:47 | CON ---
Date of Consultation: 12/16/[address] Silver and Dr. Ruiz for chest pain on 12/15/2022. I saw the patient on 12/16/2022. History Of Present Illness: Ms. Leary is 67. Came in with atypical chest pain. Had only past medic al history of thyroid. Has known cervical spondylosis that was diagnosed with a significantly hernia arlin disk. She was referred to Dr. Leonard from Neurosurgery. Her chest pain was sharp, atypical, left -sided, nonexertional. No nausea, vomiting, diaphoresis, PND, orthopnea, pedal edema, palpitation, o r syncope. Chest x-ray was negative. EKG was negative. Troponin was negative. Past Medical History: Includes hypothyroidism. Allergies: NONE. Medications: Include Synthroid. Family History: Positive for heart disease. Physical Examination: Vital Signs: Stable, afebrile. HEENT: Negative. Neck: Supple with no bruit. Chest: Clear. Cardiac: Normal. Abdomen: Benign. Extremities: Revealed no clubbing, cyanosis, or edema. Diagnostic Data: As stated earlier. Impression And Plan: 1.Atypical chest pain, most likely secondary to cervical spondylosis. 2.Hypothyroidism. 3.Positive family history of heart disease. Echocardiogram and Lexiscan are pending. We will see what those show before making further decisions. REGINA/WM Voice ID: [id number] Report ID: [id number]
== END 2022-12-16 13:26 | disposition home or self-care (01) ==
LOC: ER 08:45 → ERHOLD 10:27 → 4TH 12:50
PROVIDERS: ADMIT Internal Medicine; ATTEND Hospitalist
DX: R07.9 Chest pain, unspecified (principal); E03.9 Hypothyroidism, unspecified; E87.6 Hypokalemia; N18.2 Chronic kidney disease, stage 2 (mild); D63.1 Anemia in chronic kidney disease; Z82.49 Family history of ischemic heart disease and other diseases of the circulatory system; M79.621 Pain in right upper arm
CPT/HCPCS: 93005; 93017; 85025 ×2; 81001; 80048 ×2; 36415; 83735 ×2; 84100; 85610; 80061; 82565; 80076; 84443; 84484 ×4; 84439; 83690; 83880; 72125; 71275; 74175; 71045; 93971; 72141; 78452; 96375; 96374; 99285; Q9967; J2785; J0360; J1650; J1100; J1170 ×2; J2405 ×2; J2920 ×3; A9500; G0378 ×4